=== PATIENT | male | born 1950 | race Caucasian/White ===

== ENCOUNTER → 2018-09-23 | Outpatient (CLI) | payer OTHER, MEDICARE ==
[2018-09-23 09:44] LABS: CALCIUM 9.7 mg/dL (8.5-10.1); CREATININE 1.1 mg/dL (0.7-1.3); POTASSIUM 3.1 mmol/L (3.5-5.1)
== END ==
LOC: CAT 09:07 → LABMALL 09:07
PROVIDERS: Nurse Practitioner
DX: K57.30 Diverticulosis of large intestine without perforation or abscess without bleeding (principal)

== ENCOUNTER → 2019-06-21 | Outpatient (CLI) | payer OTHER, MEDICARE ==
[~2019-06-21] VITALS: Ht 167.6 cm; Wt 63.5 kg
[~2019-06-21] MED LIST: ASA81BEC PO; LIPITOR40 MG PO; TOPROL XL25 MG PO
--- NOTE | 2019-06-24 08:52 | PATH ---
[facility] [place] [address] PATHOLOGY RPT PROCEDURE Name: YURIY MONTES Room #: REG Farhan Dariel.#: [id number] Admission: 06/21/19 Date of : 50 Discharge: Report #: [id number] Path Case #: [id number] [facility] Accession Number: [id number] . 01 Material submitted: . PART A: stomach - BIOPSY OF GASTRIC NODULE PART B: esophagus - BIOPSY OF ESOPHAGEAL NODULES PART C: colon - POLYP AT ASCENDING COLON. Modifiers: ascending PART D: colon - POLYP AT TRANSVERSE COLON. Modifiers: transverse . 01 Clinical history: . Diverticulosis . 02 Diagnosis: A. Gastric nodule, endoscopic biopsy: - Hyperplastic polyp with reactive changes. - No definite dysplasia identified. . B. Squamous mucosa, esophageal nodules, endoscopic biopsy: - Mild esophagitis with significant increase in intraepithelial eosinophils up to 21/HPF (please see comment). - Negative for intestinal metaplasia or dysplasia. . C. Polyp, at ascending colon, endoscopic biopsy: - Hyperplastic polyp. - Negative for dysplasia. . D. Polyp, at transverse colon, endoscopic biopsy: - Compatible with a hyperplastic polyp and multiple lymphoid aggregates. - Negative for dysplasia. LBQ 06/23/2019 1324 Local . 02 Comment: Examination of the esophageal biopsy tissue shows squamous mucosa with a marked number of intraepithelial eosinophils. Although eosinophils are commonly encountered in inflammation due to reflux esophagitis, the eosinophils in the present specimen are numerous, exceeding 21/HPF. Apart from reflux esophagitis, potential etiologies for the histologic pattern include allergic and collagen vascular diseases, fungal or parasitic infections, and eosinophilic esophagitis (idiopathic). Please correlate with clinical and endoscopic findings. (IUV/db; 06/23/2019) . 02 Electronically signed: . Patricia Woodward MD, Pathologist NPI- [id number] . [address] [address] PATHOLOGY RPT PROCEDURE Name: YURIY MONTES Room #: REG CLI Arthur#: [id number] Admission: 06/21/19 Date of : 50 Discharge: Report #: [id number] Path Case #: [id number] Gross description: . A. The specimen is received in formalin, labeled "Yuriy Montes, biopsy of gastric nodule". Received are four segments of pale garnett soft tissue ranging in size from 0.1 to 0.5 cm in maximum dimensions. The specimen is submitted entirely in cassette A1. . B. The specimen is received in formalin, labeled "Yuriy Montes, biopsy of esophageal nodules". Received are four segments of pale garnett soft tissue ranging in size from 0.1 to 0.5 cm in maximum dimensions. The specimen is submitted entirely in cassette B1. . C. The specimen is received in formalin, labeled "Yuriyvenkat Kincaidmeier, polyp at ascending colon". Received is a segment of pale garnett soft tissue measuring 0.5 cm in maximum dimensions. The specimen is submitted entirely in cassette C1. . D. The specimen is received in formalin, labeled "Yuriy Klusmeier, polyp at transverse colon". Received is a segment of pale garnett soft tissue measuring 0.7 cm in maximum dimensions. The specimen is submitted entirely in cassette D1. ([facility]; 06/22/2019) QAC/QAC 06/23/2019 1318 Local . 02 Pathologist provided ICD-10: K31.7, K20.9, K63.5 . 02 CPT . 865127, 618387, 572186, [id number] Specimen Comment: A courtesy copy of this report has been sent to [phone], [phone] Specimen Comment: [id number] Specimen Comment: Report sent to and Specimen Comment: A duplicate report has been generated due to demographic updates. Performed at: [address], [place] [id number] MD Mayito Olivares MD Phone: [phone] Performed at: [address] [id number] MD Patricia Woodward MD Phone: [phone]
== END | disposition home or self-care (01) ==
LOC: GI 06:33
DX: K63.5 Polyp of colon (principal); K57.30 Diverticulosis of large intestine without perforation or abscess without bleeding; K31.7 Polyp of stomach and duodenum; K22.6 Gastro-esophageal laceration-hemorrhage syndrome; K20.0 Eosinophilic esophagitis; I10 Essential (primary) hypertension; E78.00 Pure hypercholesterolemia, unspecified; I25.2 Old myocardial infarction; Z98.890 Other specified postprocedural states; Z79.899 Other long term (current) drug therapy; Z79.82 Long term (current) use of aspirin; Z90.81 Acquired absence of spleen
CPT/HCPCS: 62110; 62900